=== PATIENT | female | born 1965 | race Caucasian/White ===

== ENCOUNTER 2016-11-18 11:23 | Emergency (ER) | payer MEDICAID, SELFPAY ==
[~2016-11-18 11:23] MED LIST: Iopamidol 370 76% 100 ML VIAL ONE
[2016-11-18 12:53] LABS: Bilirubin Negative (Negative); Blood, Urine Negative (Negative); Glucose, Urine (Dipstick) Negative (Negative); Ketone, Urine Negative (Negative); Nitrite Negative (Negative); Protein, Urine (Dipstick) Negative (Neg-Trace); Urobilinogen 0.2 mg/dL (0.2-1.0)
[2016-11-18 12:55] LABS: Anion Gap 14 mmol/L (10-20); BUN (Urea Nitrogen) 7 mg/dL (7.0-18.7); Calc. Creatinine Clearance 0 mL/min (70-130); Calcium 9.7 mg/dL (7.8-10.44); Carbon Dioxide 27 mmol/L (22-29); Chloride 103 mmol/L (98-107); Estimated GFR-MDRD Greater than 90
[2016-11-18 12:57] LABS: Renal Epithelial 0-3 HPF (0-3); WBC/HPF 0-3 HPF (0-3)
[2016-11-18 12:58] LABS: Bacteria/HPF 1+ HPF (None Seen)
--- NOTE | 2016-11-18 14:56 | ERRECORD ---
[facility] EMERGENCY RECORD HPI NEUROLOGICAL DEFICIT (13:47 JOHE) CHIEF COMPLAINT: Patient presents for evaluation of paresthesias. HISTORIAN: History provided by patient, Patient reports that since Saturday (2 1/2 days), she feels that liquids run out the left side of her mouth, and she has a strange sensation (tightness) of the right side of the mouth/periorbital region. Patient also reports some increased trouble with forming words due to movement of the mouth, and reports left sided occipital headache over the same time period. States several weeks ago she had some tinnitus and vertigo that is now resolved. Triage complaint reports nausea, but patient stated no nausea to me during my exam. Patient denies vision changes, taste changes, neck stiffness, F&C, new numbness/tingling/weakness of the extremities, balance changes, CP, SOB, palpitations, and other symptoms. No trauma or recent illnesses reported. No prior similar episodes. No personal or FH of aneurysms, connective tissue disorders, or PCKD. Pt. refuses medication for headache. LOCATION: Symptoms are localized, most severe to the right side of the face. QUALITY: Patient is alert and oriented to person, place and time, Marcelina coma score is 15, Pain is sharp in nature. SEVERITY: Maximum severity of symptoms severe, Currently symptoms are severe. TIME COURSE: Patient unable to describe onset of symptoms, There has been no change in the patient's symptoms over time, are constant. EXACERBATED BY: Patient's condition exacerbated by nothing. RELIEVED BY: Nothing tried for relief. ROS (13:53 JOHE) CONSTITUTIONAL: Historian denies chills, denies fatigue, denies fever, denies malaise, denies weakness. EYES: Historian denies eye pain, denies eye redness, denies photophobia, denies vision changes. ENT: Historian denies drooling, denies dysphagia, denies hearing changes, denies otalgia, denies otorrhea, denies rhinorrhea, denies sore throat, denies stridor, denies tinnitus, denies voice changes. CARDIOVASCULAR: Historian denies chest pain, denies diaphoresis, denies syncope, denies palpitations. RESPIRATORY: Historian denies cough, denies shortness of breath, denies wheezing. GI: Historian denies abdominal pain, denies diarrhea, denies nausea, denies vomiting. GENITOURINARY FEMALE: Historian denies dysuria, denies frequency, denies hematuria. MUSCULOSKELETAL: Historian denies arthralgias, denies back pain, denies fall, denies myalgias, denies neck pain. SKIN: Historian denies rash, denies skin changes. NEUROLOGIC: Historian denies confusion, denies dizziness, denies focal weakness, denies gait changes, reports headache, denies paralysis, denies sensory changes, denies tremors, denies &a-1R&a+25V*p+0X*[id number]*c202B*c15G*c2P*p-0X&a-25V&a+1R Name: Mariola Summers : 1965 F51 MedRec: [id number] AcctNum: [id number] Prepared: Jacey Nov 18, 2016 14:51 by Interface Page 1 of 4 pMD [facility] EMERGENCY RECORD vertigo. HEMO/LYMPHATIC: Historian denies abnormal blood clotting. PSYCHIATRIC: Historian denies alcohol abuse, denies drug abuse. NOTES: All systems reviewed, negative except as described above. PAST MEDICAL HISTORY (11:31 JPAR) MEDICAL HISTORY: Past medical history includes history of diabetes, Type II, Past medical history includes gynecologic history, uterine fibroid, Past medical history includes history of hyperlipidemia, high cholesterol, Past medical history includes history of hypertension, which has been treated, Patient is compliant, Past medical history includes neurological disease, migraine headaches. FEMALE SURGICAL HISTORY: Surgical history of hysterectomy- total- 2014. PSYCHIATRIC HISTORY: Psychiatric history includes, depression. SOCIAL HISTORY: Patient denies alcohol use, Patient denies drug use, Patient has no smoking history. KNOWN ALLERGIES No Known Allergies (Unconfirmed) No Known Drug Allergies CURRENT MEDICATIONS (11:29 JPAR) Calcium + D: TABLET : Strength - 600 mg calcium (1,500 mg)-200 unit : ORAL Patient Dose: 1 tab(s) Oral 2 times a day. metFORMIN: TABLET : Strength - 500 mg : ORAL Patient Dose: 1 tab(s) Oral 2 times a day. B Complex: CAPSULE : ORAL Patient Dose: 1 cap(s) Oral once a day (in the morning). lovastatin: TABLET : Strength - 20 mg : ORAL Patient Dose: 1 tab(s) Oral once a day (in the evening). lisinopril: TABLET : Strength - 20 mg : ORAL Patient Dose: 1.5 tab(s) Oral once a day (in the morning). VITAL SIGNS VITAL SIGNS: BP: 169/93, Pulse: 86, Resp: 16, Temp: 98.1 (Oral), Pain: 8, O2 sat: 98 on Room Air, Time: 11/18/2016 11:27. (11:27 JPAR) BP: 164/79, Pulse: 68, Resp: 14, Pain: 8, O2 sat: 99, Time: 11/18/2016 13:25. (13:25 JPAR) PHYSICAL EXAM (13:54 JOHE) CONSTITUTIONAL: Vital signs reviewed, Patient appears non toxic, Patient alert and oriented to person, place and time. &a-1R&a+25V*p+0X*[id number]*c202B*c15G*c2P*p-0X&a-25V&a+1R Name: Mariola Summers : 1965 F51 MedRec: [id number] AcctNum: [id number] Prepared: Jacey Nov 18, 2016 14:51 by Interface Page 2 of 4 pMD [facility] EMERGENCY RECORD HEAD: Head exam included findings of head atraumatic, normocephalic, Patient has mild left sided facial drooping, including droop of the forehead muscles. No raccoon eyes or rodriguez sign, NCAT. EYES: Eye exam normal, Eye exam included findings of eyelids normal to inspection, Pupils equally round and reactive to light, Extraocular muscles intact, Conjunctiva normal, Sclera normal, Fundoscopic exam normal, Eye exam included findings of anterior chamber clear, PERRLA, EOMI, no nystagmus. Nondilated funduscopic exam unremarkable. ENT: Ear exam normal, external ear normal, tympanic membranes normal, no foreign body, no drainage, no bleeding, hearing normal, Pharynx exam normal, not injected, no swelling, symmetrical, Uvula exam normal, midline, no edema, Tonsil exam normal, not enlarged, no exudates, Mouth exam normal, mucous membranes moist, no drooling, no lesions, no lacerations, no tongue elevation. NECK: Neck exam normal, Neck exam included findings of normal range of motion, Trachea midline, no carotid bruits, no meningeal signs, no cervical adenopathy, no tenderness, no contusions, no ecchymosis, Neck supple, nontender with full ROM. RESPIRATORY CHEST: Respiratory and chest exam normal, Respiratory exam included findings of no respiratory distress, Breath sounds clear, No wheezing, No rales, No rhonchi, Breath sounds not absent, Breath sounds not diminished, CTAB. CARDIOVASCULAR: Cardiovascular assessment normal, Cardiovascular exam included findings of heart rate regular rate and rhythm, Heart sounds normal, RRR, no R/M/G. + pulses all ext., no bruits, no edema. ABDOMEN FEMALE: Abdominal exam normal, Abdominal exam included findings of abdomen nontender, Bowel sounds normal, no distension, no mass, no pulsatile masses. BACK: Back exam normal, Back exam included findings of normal inspection, range of motion normal. UPPER EXTREMITY: Upper extremity exam normal, Upper extremity exam included findings of inspection normal, Range of motion normal, Motor strength normal, Sensation intact, Radial pulse normal. LOWER EXTREMITY: Lower extremity exam normal, Lower extremity exam included findings of inspection normal, Range of motion normal, Motor strength normal, Sensation intact, Posterior tibial pulse normal, Pedal pulse normal, no calf tenderness, no palpable cords. NEURO: Marcelina coma scale 15, Neuro exam findings include patient oriented to person, place and time, Speech normal, Gait normal, Memory normal, Deep tendon reflexes normal, no focal motor deficits, no focal sensory deficits, no cerebellar deficits, no nystagmus, no clonus, no asterixis, AAO X3, CN II-XII intact bilaterally except mild facial drooping of the left side of the face, including the forehead. Str. 5/5 all ext., sensation intact light touch all ext., reflexes 1-2+/4 equal all ext., normal finger-nose, RUSSELL, heel-metz, and gait in ED. SKIN: Skin exam normal, Skin exam included findings of skin warm, &a-1R&a+25V*p+0X*y4003H*c202B*c15G*c2P*p-0X&a-25V&a+1R Name: Mariola Summers : 1965 F51 MedRec: [id number] AcctNum: [id number] Prepared: Jacey Nov 18, 2016 14:51 by Interface Page 3 of 4 pMD [facility] EMERGENCY RECORD dry, and normal in color, no rash. LYMPHATIC: Lymphatic exam included findings of cervical nodes normal. PSYCHIATRIC: Psychiatric exam normal, Psychiatric exam included findings of patient oriented to person place and time, Normal affect, Judgment normal, Insight normal, Remote memory normal, Recent memory normal, Concentration normal, No suicidal ideations, No homicidal ideations. RADIOLOGYINTERPRETATION HEAD: Head CT negative, with contrast, no bleed, no mass, no acute ischemic stroke, no acute changes. (14:46 JOHE) NECK: CT angiogram of the head/neck negative for acute abnormality, no evidence of dissection or obstruction. (14:47 JOHE) FIRST COOK: Preliminary review of CT scans by, Radiologist. 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 Discussed treatment for benton's palsy, keeping eye moist and taping lid if needed (lid closes well with mild weakness on my exam), close outpatient f/u, and warning signs for immediate return to ED. Patient reports her headache is gone after the CT scan, and promises to f/u or return to ED. Also discussed that Benton's palsy takes some time to recover, and a small percentage of people never regain full function. DATA REVIEWED: Lab data reviewed, Xray data reviewed. PROBLEM LIST No recorded problems DIAGNOSIS (14:27 WOJCIECHE) FINAL: PRIMARY: benton's palsy. PRESCRIPTION (14:27 JOHE) predniSONE oral: TABLET : 20 mg : ORAL : Quantity: 60 Unit: mg Route: ORAL Schedule: once a day (in the morning) Dispense: 21 Unit: tab(s) May substitute. Refills: No Refills . NOTES: 60mg (3 tabs) daily for one week. No Refills. DISPOSITION PATIENT: Disposition Type: Discharge, Disposition: *Discharge Home, Condition: Good. (14:28 LUDA) Patient left the department. (14:47 ROGELIO) Myles: LUDA=MD Lee, Romel MERCADO=JT Lloyd, Hamzah &a-1R&a+25V*p+0X*[id number]*c202B*c15G*c2P*p-0X&a-25V&a+1R Name: Mariola Summers : 1965 F51 MedRec: [id number] AcctNum: [id number] Prepared: Jacey Nov 18, 2016 14:51 by Interface Page 4 of 4 pMD MTDD
--- NOTE | 2016-11-18 15:02 | PICIS ---
[facility] EMERGENCY RECORD TRIAGE (11:28 JPAR) TRIAGE NOTES: R sided facial tingling and facial numbness tingling. (11:28 JPAR) PATIENT: NAME: Mariola Summers, AGE: 51, GENDER: female, : SatApr 27, 1965, TIME OF GREET: Sun Nov 18, 2016 11:25, PREFERRED LANGUAGE: French, ETHNICITY: or , ECODE BILLING MAP: [facility], Zip Code: [address], KG WEIGHT: 74.39, PHONE: , , , PERSON ID: [id number], [facility] (11:28 JPAR) COMPLAINT: RT FACE DROOPING & TINGLING,NAUSEA. (11:28 JPAR) ADMISSION: URGENCY: 3 Urgent, ADMISSION SOURCE: Home, TRANSPORT: CAR, BED: TRIAGE. (11:28 JPAR) ASSESSMENT: Assessment: r sided facial numbness and tingling, 2 days, Symptoms began 2 days, Symptoms began 2 days ago. (11:31 JPAR) IMMUNIZATIONS: Flu vaccine up to date, Tetanus immunization up to date, Pneumococcal vaccine up to date. (11:31 JPAR) SIRS SCORING: Heart Rate 55-109 (0), Temp range 96.8-101.1 (0), respiratory rate 12-24 (0), Mental Status altered: no (0), Infection or Suspected Infection: No. (11:31 JPAR) TRIAGE SCREENING: Patient denies suicidal ideation, Patient denies presence of domestic violence. (11:31 JPAR) PROVIDERS: TRIAGE NURSE: Hamzah Lloyd RN. (11:28 JPAR) PREVIOUS VISIT ALLERGIES: No Known Drug Allergies. (11:28 JPAR) No Known Drug Allergies. (11:31 JPAR) KNOWN ALLERGIES No Known Allergies (Unconfirmed) No Known Drug Allergies CURRENT MEDICATIONS (11:29 JPAR) Calcium + D: TABLET : Strength - 600 mg calcium (1,500 mg)-200 unit : ORAL Patient Dose: 1 tab(s) Oral 2 times a day. metFORMIN: TABLET : Strength - 500 mg : ORAL Patient Dose: 1 tab(s) Oral 2 times a day. B Complex: CAPSULE : ORAL Patient Dose: 1 cap(s) Oral once a day (in the morning). lovastatin: TABLET : Strength - 20 mg : ORAL Patient Dose: 1 tab(s) Oral once a day (in the evening). lisinopril: TABLET : Strength - 20 mg : ORAL Patient Dose: 1.5 tab(s) Oral once a day (in the morning). VITAL SIGNS VITAL SIGNS: BP: 169/93, Pulse: 86, Resp: 16, Temp: 98.1 (Oral), Pain: 8, O2 sat: 98 on Room Air, Time: 11/18/2016 11:27. (11:27 JPAR) &a-1R&a+25V*p+0X*z4608V*c202B*c15G*c2P*p-0X&a-25V&a+1R Name: Mariola Summers : 1965 F51 MedRec: [id number] AcctNum: [id number] Prepared: Jacey Nov 18, 2016 14:57 by Interface Page 1 of 9 pMD [facility] EMERGENCY RECORD BP: 164/79, Pulse: 68, Resp: 14, Pain: 8, O2 sat: 99, Time: 11/18/2016 13:25. (13:25 JPAR) NURSING ASSESSMENT: CVA ASSESSMENT TOOL (11:28 JPAR) CONSTITUTIONAL: Patient arrives ambulatory, Gait steady, History obtained from patient, Patient appears comfortable, Patient cooperative, Patient alert, Oriented to person, place and time, Skin warm, Skin dry, Skin normal in color, Mucous membranes pink, Mucous membranes moist, Patient complains of Facial numbness and tingling 2-3 days. CVA ASSESSMENT: CVA assessment findings include onset of symptoms were, progressive development of deficit over time, Onset of symptoms: Saturday night onset 2 days, Pupils not equally round and reactive to light, Speech normal, Hand grasps equal, Foot press equal, Upper extremity motor strength strong, Lower extremity motor strength strong, Numbness, to the right side of the face, no facial droop, no numbness to upper extremities, no numbness to lower extremities, Marcelina coma scale:, Eye opening: (4) - Spontaneous, Verbal: (5) - Oriented/conversive, Motor: (6) - Obeys commands/Spontaneous, GCS Total: 15, Associated with visual changes, having trouble seeing things at close range. NIHSS: CVA assessment findings: Level of consciousness: alert, keenly responsive (0), Questions: answers both questions correctly (0), Commands: performs both tasks correctly (0), Best gaze: normal (0), Visual: no visual loss (0), Facial palsy: minor paralysis (1), Motor Left Arm: no drift, arm stays 90/45 degrees for full 10 seconds (0), Motor Right Arm: no drift, arm stays 90/45 degrees for full 10 seconds (0), Motor left leg: no drift, leg stays at 30 degrees for full five seconds (0), Motor right leg: no drift, leg stays at 30 degrees for full five seconds (0), Limb ataxia absent (0), Sensory: normal, no sensory loss (0), Best language: no aphasia; normal (0), Dysarthria: normal (0), Extinction and Inattention: normal (0), Total score 1. SWALLOWING EVALUATION: Dysphagia Assessment findings: does not need frequent suctioning, can manage own secretions, no dense facial weakness, no decreased level of alertness, does not require oxygen by mask, able to maintain oxygen saturation at or above 90%, no history of aspiration pneumonia, no prior martin with residual effects, Patient clear for swallowing evaluation; no positive responses, Following administration of 3 ounces of water by a cup, patient exhibited no signs or symptoms of aspiration, passed evaluation. SAFETY: Side rails up, Cart/Stretcher in lowest position, Call light within reach, Hospital ID band on. NURSING PROCEDURE: IV PATIENT IDENITIFIER: Patient actively involved in identification process, Patient's identity verified by patient stating name, Patient's identity verified by patient stating date, Patient's &a-1R&a+25V*p+0X*b0892A*c202B*c15G*c2P*p-0X&a-25V&a+1R Name: Mariola Summers : 1965 F51 MedRec: [id number] AcctNum: [id number] Prepared: Jacey Nov 18, 2016 14:57 by Interface Page 2 of 9 pMD [facility] EMERGENCY RECORD identity verified by hospital ID bracelet, Patient's identity verified by family member. (12:20 JPAR) IV SITE 1: IV therapy indicated for hydration, IV therapy indicated for medication administration, IV established, to the right antecubital, using a 20 gauge catheter, in one attempt, IV site prepped with clorohexaphine, Saline lock established, Flushed with normal saline (mls): 10, Labs drawn at time of placement, labeled in the presence of the patient and sent to lab. (12:20 JPAR) IV SITE 2: IV therapy indicated for hydration, IV therapy indicated for medication administration, IV established, to the left antecubital, using a 20 gauge catheter, in one attempt, IV site prepped with chlorhexadine, Saline lock established, Flushed with normal saline (mls): 10. (12:20 JPAR) FOLLOW-UP SITE 1: After procedure, 2x2 dressing applied, After procedure, no drainage at IV site, After procedure, no swelling at IV site, After procedure, no redness at IV site, IV discontinued, due to pain at site, catheter intact. (12:20 JPAR) FOLLOW-UP SITE 2: After procedure, 2x2 dressing applied, After procedure, no drainage at IV site, After procedure, no swelling at IV site, After procedure, no redness at IV site, IV discontinued, due to patient being discharged, catheter intact. (14:40 JPAR) SAFETY: Side rails up, Cart/Stretcher in lowest position, Family at bedside, Call light within reach, Hospital ID band on. (12:20 JPAR) NURSING PROCEDURE: URINE COLLECTION (12:15 JPAR) PATIENT IDENTIFIER: Patient actively involved in identification process, Patient's identity verified by patient stating name, Patient's identity verified by patient stating date, Patient's identity verified by hospital ID bracelet, Patient's identity verified by family member. URINE COLLECTION FEMALE: Urine collection indicated to monitor output, Urine collected by void, output amount (mL) 40, urine yellow in color, and cloudy, Specimen labeled in the presence of the patient and sent to lab, Specimen obtained for culture labeled in the presence of the patient and sent to lab. SAFETY: Side rails up, Cart/Stretcher in lowest position, Family at bedside, Call light within reach, Hospital ID band on. ORDER DETAILS Order Name: Basic Metabolic Panel, Status: Active, Time: 12:00 11/18/2016, User: LUDA, - Ordered for: MD Howard John, - Entered by: MD Howard John - Sun Nov 18, 2016 12:00, - Quantity: 1, Order Name: CTA Angio Head W WO Con, Status: Active, Time: 12:00 11/18/2016, User: LUDA, - Ordered for: MD Howard John, - Entered by: MD Howard John - Jacey Nov 18, 2016 12:00, &a-1R&a+25V*p+0X*s3206M*c202B*c15G*c2P*p-0X&a-25V&a+1R Name: Mariola Summers : 1965 F51 MedRec: [id number] AcctNum: [id number] Prepared: Jacey Nov 18, 2016 14:57 by Interface Page 3 of 9 D [facility] EMERGENCY RECORD - Quantity: 1, Order Name: CTA Angio Neck W WO Con, Status: Active, Time: 12:00 11/18/2016, User: LUDA, - Ordered for: MD Howard John, - Entered by: MD Howard John - Jacey Nov 18, 2016 12:00, - Quantity: 1, Order Name: SALINE LOCK, Status: Done, Time: 12:31 11/18/2016, User: ROGELIO, - Ordered for: MD Howard John, - Entered by: MD Howard John - Sun Nov 18, 2016 12:01, - Quantity: 1, Order Name: Urinalysis with Microscopic, Status: Active, Time: 12:35 11/18/2016, User: LUDA, - Ordered for: MD Howard John, - Entered by: MD Howard John - Sun Nov 18, 2016 12:35, - Quantity: 1. HPI NEUROLOGICAL DEFICIT (13:47 LUDA) CHIEF COMPLAINT: Patient presents for evaluation of paresthesias. HISTORIAN: History provided by patient, Patient reports that since Saturday (2 1/2 days), she feels that liquids run out the left side of her mouth, and she has a strange sensation (tightness) of the right side of the mouth/periorbital region. Patient also reports some increased trouble with forming words due to movement of the mouth, and reports left sided occipital headache over the same time period. States several weeks ago she had some tinnitus and vertigo that is now resolved. Triage complaint reports nausea, but patient stated no nausea to me during my exam. Patient denies vision changes, taste changes, neck stiffness, F&C, new numbness/tingling/weakness of the extremities, balance changes, CP, SOB, palpitations, and other symptoms. No trauma or recent illnesses reported. No prior similar episodes. No personal or FH of aneurysms, connective tissue disorders, or PCKD. Pt. refuses medication for headache. LOCATION: Symptoms are localized, most severe to the right side of the face. QUALITY: Patient is alert and oriented to person, place and time, Kemah coma score is 15, Pain is sharp in nature. SEVERITY: Maximum severity of symptoms severe, Currently symptoms are severe. TIME COURSE: Patient unable to describe onset of symptoms, There has been no change in the patient's symptoms over time, are constant. EXACERBATED BY: Patient's condition exacerbated by nothing. RELIEVED BY: Nothing tried for relief. ROS (13:53 LUDA) CONSTITUTIONAL: Historian denies chills, denies fatigue, denies fever, denies malaise, denies weakness. EYES: Historian denies eye pain, denies eye redness, denies photophobia, denies vision changes. &a-1R&a+25V*p+0X*s6499G*c202B*c15G*c2P*p-0X&a-25V&a+1R Name: Mariola Summers : 1965 F51 MedRec: [id number] AcctNum: [id number] Prepared: Jacey Nov 18, 2016 14:57 by Interface Page 4 of 9 pMD [facility] EMERGENCY RECORD ENT: Historian denies drooling, denies dysphagia, denies hearing changes, denies otalgia, denies otorrhea, denies rhinorrhea, denies sore throat, denies stridor, denies tinnitus, denies voice changes. CARDIOVASCULAR: Historian denies chest pain, denies diaphoresis, denies syncope, denies palpitations. RESPIRATORY: Historian denies cough, denies shortness of breath, denies wheezing. GI: Historian denies abdominal pain, denies diarrhea, denies nausea, denies vomiting. GENITOURINARY FEMALE: Historian denies dysuria, denies frequency, denies hematuria. MUSCULOSKELETAL: Historian denies arthralgias, denies back pain, denies fall, denies myalgias, denies neck pain. SKIN: Historian denies rash, denies skin changes. NEUROLOGIC: Historian denies confusion, denies dizziness, denies focal weakness, denies gait changes, reports headache, denies paralysis, denies sensory changes, denies tremors, denies vertigo. HEMO/LYMPHATIC: Historian denies abnormal blood clotting. PSYCHIATRIC: Historian denies alcohol abuse, denies drug abuse. NOTES: All systems reviewed, negative except as described above. PAST MEDICAL HISTORY (11:31 JPAR) MEDICAL HISTORY: Past medical history includes history of diabetes, Type II, Past medical history includes gynecologic history, uterine fibroid, Past medical history includes history of hyperlipidemia, high cholesterol, Past medical history includes history of hypertension, which has been treated, Patient is compliant, Past medical history includes neurological disease, migraine headaches. FEMALE SURGICAL HISTORY: Surgical history of hysterectomy- total- 2014. PSYCHIATRIC HISTORY: Psychiatric history includes, depression. SOCIAL HISTORY: Patient denies alcohol use, Patient denies drug use, Patient has no smoking history. PHYSICAL EXAM (13:54 JOHE) CONSTITUTIONAL: Vital signs reviewed, Patient appears non toxic, Patient alert and oriented to person, place and time. HEAD: Head exam included findings of head atraumatic, normocephalic, Patient has mild left sided facial drooping, including droop of the forehead muscles. No raccoon eyes or rodriguez sign, NCAT. EYES: Eye exam normal, Eye exam included findings of eyelids normal to inspection, Pupils equally round and reactive to light, Extraocular muscles intact, Conjunctiva normal, Sclera normal, Fundoscopic exam normal, Eye exam included findings of anterior chamber clear, PERRLA, EOMI, no nystagmus. Nondilated funduscopic exam unremarkable. &a-1R&a+25V*p+0X*m2991P*c202B*c15G*c2P*p-0X&a-25V&a+1R Name: Mariola Summers : 1965 F51 MedRec: [id number] AcctNum: [id number] Prepared: Jacey Nov 18, 2016 14:57 by Interface Page 5 of 9 [facility] EMERGENCY RECORD ENT: Ear exam normal, external ear normal, tympanic membranes normal, no foreign body, no drainage, no bleeding, hearing normal, Pharynx exam normal, not injected, no swelling, symmetrical, Uvula exam normal, midline, no edema, Tonsil exam normal, not enlarged, no exudates, Mouth exam normal, mucous membranes moist, no drooling, no lesions, no lacerations, no tongue elevation. NECK: Neck exam normal, Neck exam included findings of normal range of motion, Trachea midline, no carotid bruits, no meningeal signs, no cervical adenopathy, no tenderness, no contusions, no ecchymosis, Neck supple, nontender with full ROM. RESPIRATORY CHEST: Respiratory and chest exam normal, Respiratory exam included findings of no respiratory distress, Breath sounds clear, No wheezing, No rales, No rhonchi, Breath sounds not absent, Breath sounds not diminished, CTAB. CARDIOVASCULAR: Cardiovascular assessment normal, Cardiovascular exam included findings of heart rate regular rate and rhythm, Heart sounds normal, RRR, no R/M/G. + pulses all ext., no bruits, no edema. ABDOMEN FEMALE: Abdominal exam normal, Abdominal exam included findings of abdomen nontender, Bowel sounds normal, no distension, no mass, no pulsatile masses. BACK: Back exam normal, Back exam included findings of normal inspection, range of motion normal. UPPER EXTREMITY: Upper extremity exam normal, Upper extremity exam included findings of inspection normal, Range of motion normal, Motor strength normal, Sensation intact, Radial pulse normal. LOWER EXTREMITY: Lower extremity exam normal, Lower extremity exam included findings of inspection normal, Range of motion normal, Motor strength normal, Sensation intact, Posterior tibial pulse normal, Pedal pulse normal, no calf tenderness, no palpable cords. NEURO: Kemah coma scale 15, Neuro exam findings include patient oriented to person, place and time, Speech normal, Gait normal, Memory normal, Deep tendon reflexes normal, no focal motor deficits, no focal sensory deficits, no cerebellar deficits, no nystagmus, no clonus, no asterixis, AAO X3, CN II-XII intact bilaterally except mild facial drooping of the left side of the face, including the forehead. Str. 5/5 all ext., sensation intact light touch all ext., reflexes 1-2+/4 equal all ext., normal finger-nose, RUSSELL, heel-metz, and gait in ED. SKIN: Skin exam normal, Skin exam included findings of skin warm, dry, and normal in color, no rash. LYMPHATIC: Lymphatic exam included findings of cervical nodes normal. PSYCHIATRIC: Psychiatric exam normal, Psychiatric exam included findings of patient oriented to person place and time, Normal affect, Judgment normal, Insight normal, Remote memory normal, Recent memory normal, Concentration normal, No suicidal ideations, No homicidal ideations. LAB INTERPRETATION (14:50 JOHE) &a-1R&a+25V*p+0X*v7072T*c202B*c15G*c2P*p-0X&a-25V&a+1R Name: Mariola Summers : 1965 F51 MedRec: [id number] AcctNum: [id number] Prepared: Jacey Nov 18, 2016 14:57 by Interface Page 6 of 9 D [facility] EMERGENCY RECORD INTERPRETATION: I reviewed the lab results, No clinically significant lab abnormalities. EVENTS TRANSFER: Triage to Emergency Triage. (Jacey Nov 18, 2016 11:28 JPAR) Emergency Triage to Emergency Room -03. (11:29 JPAR) Removed from Emergency Emergency Room -03. (14:47 JPAR) RADIOLOGYINTERPRETATION HEAD: Head CT negative, with contrast, no bleed, no mass, no acute ischemic stroke, no acute changes. (14:46 JOHE) NECK: CT angiogram of the head/neck negative for acute abnormality, no evidence of dissection or obstruction. (14:47 JOHE) DIMENSION [employer]Y SUPERVISOR: Preliminary review of CT scans by, Radiologist. 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 Discussed treatment for benton's palsy, keeping eye moist and taping lid if needed (lid closes well with mild weakness on my exam), close outpatient f/u, and warning signs for immediate return to ED. Patient reports her headache is gone after the CT scan, and promises to f/u or return to ED. Also discussed that Benton's palsy takes some time to recover, and a small percentage of people never regain full function. DATA REVIEWED: Lab data reviewed, Xray data reviewed. PROBLEM LIST No recorded problems DIAGNOSIS (14:27 JOHE) FINAL: PRIMARY: benton's palsy. DISPOSITION PATIENT: Disposition Type: Discharge, Disposition: *Discharge Home, Condition: Good. (14:28 JOHE) Patient left the department. (14:47 JPAR) INSTRUCTION (14:28 JOHE) DISCHARGE: BENTON'S PALSY. FOLLOWUP: [facility], Clinic, [address] , , MD Ann, [facility], Neurology, [address] [place] [address], [address], [facility] [address], , Follow up with Primary Care Physician in 2-3 days, Follow up with Specialist as soon as possible. SPECIAL: Follow-up with your PCP. &a-1R&a+25V*p+0X*i9262Z*c202B*c15G*c2P*p-0X&a-25V&a+1R Name: Mariola Summers : 1965 F51 MedRec: [id number] AcctNum: [id number] Prepared: Jacey Nov 18, 2016 14:57 by Interface Page 7 of 9 pMD [facility] EMERGENCY RECORD PRESCRIPTION (14:27 JOHE) predniSONE oral: TABLET : 20 mg : ORAL : Quantity: 60 Unit: mg Route: ORAL Schedule: once a day (in the morning) Dispense: 21 Unit: tab(s) May substitute. Refills: No Refills . NOTES: 60mg (3 tabs) daily for one week. No Refills. IMAGING *SUPPLY CHARGE SHEET: Image captured from scanner. (14:42 JPAR) *DISCHARGE INSTRUCTIONS RECEIPT: Image captured from scanner. (14:43 JPAR) ADMIN (14:51 JOHE) DIGITAL SIGNATURE: MD Howard John. RESULTS LABORATORY: Urinalysis with Microscopic Collection DT: Jacey Nov 18, 2016 12:38, Color Yellow , Range (Yellow), Clarity Clear , Range (Clear), Specific Roberts, Urine 1.015 , Range (1.005-1.030), pH, Urine 7.5 , Range (5.0-9.0), Leukocyte Negative , Range (Negative), Nitrite Negative , Range (Negative), Protein, Urine (Dipstick) Negative mg/dL, Range (Neg-Trace), Glucose, Urine (Dipstick) Negative mg/dL, Range (Negative), Ketone, Urine Negative mg/dL, Range (Negative), Urobilinogen 0.2 mg/dL, Range (0.2-1.0), Bilirubin Negative , Range (Negative), Blood, Urine Negative , Range (Negative). (12:59 JPAR) Basic Metabolic Panel Collection DT: [place] Nov 18, 2016 12:26, Sodium 140 mmol/L, Range (136-145), Potassium 3.6 mmol/L, Range (3.5-5.1), Chloride 103 mmol/L, Range (98-107), Carbon Dioxide 27 mmol/L, Range (22-29), Anion Gap 14 mmol/L, Range (10-20), BUN (Urea Nitrogen) 7 mg/dL, Range (7.0-18.7), Creatinine 0.64 mg/dL, Range (0.6-1.1), Estimated GFR-MDRD Greater than 90 , Reference Range for Estimated GFR: Greater than 90, mL/min/1.73 m2 NOTE: The MDRD equation has not been validated for use, with the elderly (over 70 years of age), women, patients with, serious comorbid condition or persons with extremes of body size, muscle, mass, or nutritional status. , *Glucose 155 - H mg/dL, Range (70-105), Calcium 9.7 mg/dL, Range (7.8-10.44). (12:59 JPAR) &a-1R&a+25V*p+0X*k1859A*c202B*c15G*c2P*p-0X&a-25V&a+1R Name: Mariola Summers : 1965 F51 MedRec: [id number] AcctNum: [id number] Prepared: Jacey Nov 18, 2016 14:57 by Interface Page 8 of 9 pMD [facility] EMERGENCY RECORD Urinalysis with Microscopic Collection DT: Jacey Nov 18, 2016 12:38, Color Yellow , Range (Yellow), Clarity Clear , Range (Clear), Specific Roberts, Urine 1.015 , Range (1.005-1.030), pH, Urine 7.5 , Range (5.0-9.0), Leukocyte Negative , Range (Negative), Nitrite Negative , Range (Negative), Protein, Urine (Dipstick) Negative mg/dL, Range (Neg-Trace), Glucose, Urine (Dipstick) Negative mg/dL, Range (Negative), Ketone, Urine Negative mg/dL, Range (Negative), Urobilinogen 0.2 mg/dL, Range (0.2-1.0), Bilirubin Negative , Range (Negative), Blood, Urine Negative , Range (Negative), WBC/HPF 0-3 HPF, Range (0-3), *Squamous Epithelial 4-6 - H HPF, Range (0-3), Renal Epithelial 0-3 HPF, Range (0-3), *Bacteria/HPF 1+ - H HPF, Range (None Seen). (13:11 LUDA) Myles: LUDA=MD Lee, Romel MERCADO=JT Lloyd, Hamzah &a-1R&a+25V*p+0X*p3449N*c202B*c15G*c2P*p-0X&a-25V&a+1R Name: Mariola Summers : 1965 F51 MedRec: [id number] AcctNum: [id number] Prepared: Jacey Nov 18, 2016 14:57 by Interface Page 9 of 9 pMD [facility]
--- NOTE | 2016-11-18 15:30 | CT ---
CT ANGIOGRAM OF THE HEAD AND NECK: History: Right facial droop. 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 Possible carotid dissection. Symptoms x 24 h ours. Headache. Comparison: None. Technique: A CT angiogram of the head and neck are performed in the axial plane. Sagittal and carolyn nal 3D MIP images are submitted for interpretation. FINDINGS: Evaluation for subarachnoid hemorrhage is limited as a noncontrast CT is not performed. No parenchymal hemorrhage. No extraaxial hematoma. No midline shift. Basilar cisterns are patent. Brain volume, age appropriate. Cortical cannon-white matter differentiation is preserved. Ventricles and sulci are patent and symmetric. Adequate aeration of the sinuses and mastoid air sheela ls. Bilateral ocular lens appropriate located. Both globes are intact. Retrobulbar fat is preserved. Aerodigestive tract is patent. Midline fatty roof of the tongue is noted on the sagittal reformatte d images. Limited evaluation of the oral cavity due to dental amalgam artifact. Epiglottis has a n ormal caliber. The epiglottic fat is preserved. There is no prevertebral soft tissue swelling. Symmetric attenuation of the parotid gland, submandibular glands. There is hypodensity in the left hepatic lobe, measuring 0.6 cm. Non-emergent thyroid ultrasound. Symmetric attenuation of the sternocleidomastoid muscles. Nonspecific, nonenlarged bilateral left I I lymph nodes. Cervical spine vertebral body height is maintained. There is no fracture. No malalignment. Centra l spinal canal and neural foramina are patent. Limited evaluation by technique. Upper mediastinum and lung apices are unremarkable. Chronic changes in the lung apices are suspecte d. CT ANGIOGRAM: The aortic arch appears to be of appropriate enhancement and luminal diameter. CT ANGIOGRAM NECK: The right innominate artery origin, common carotid artery, carotid bifurcation and internal carotid artery have appropriate enhancement and luminal diameter. No evidence of significant stenosis. No evidence of occlusion or dissection. Left carotid: Left carotid artery origins is appropriate enhancement and luminal diameter. The lef t common carotid artery, carotid bifurcation and internal carotid artery has appropriate enhancement and luminal diameter. No evidence of occlusion or dissection. Both vertebral artery origins are unremarkable. Cervical course of both vertebral arteries is unrem arkable. Both cervical vertebral arteries are patent. Vertebral arteries are co-dominant. Bilateral subclavian arteries are unremarkable. CT ANGIOGRAM OF THE HEAD: Limited evaluation by acquisition and technique. Neither petrous segment could be adequately access ed. There is symmetric enhancement in the luminal diameter of the cavernous carotid arteries bilate rally. There is overall symmetric appearance of the A1 and M1 segments. Evaluation of the proximal MCA branches and A2 vertebral arteries is limited by technique. With regard to the posterior circu lation, intracranial vertebral arteries are grossly unremarkable. Neither PICA artery origin can be adequately assessed. Grossly the basilar artery is unremarkable. Evaluation of both P1 segments i s limited. No gross abnormality. IMPRESSION: 1. Limited evaluation of the [place] due to technique. No evidence of a vascular occlusio n. 2. Appropriate enhancement in luminal diameter of the cervical carotid and vertebral arteries. No evidence of dissection. 3. Hypodensity in the left thyroid lobe. Non-emergent thyroid ultrasound. POS: MIRIAM
== END 2016-11-18 14:38 | disposition home or self-care (01) ==
LOC: NAV ERS 11:23
DX: G51.0 Bell's palsy (principal); E11.9 Type 2 diabetes mellitus without complications; E78.5 Hyperlipidemia, unspecified; I10 Essential (primary) hypertension; G43.909 Migraine, unspecified, not intractable, without status migrainosus
CPT/HCPCS: 70496; 70498; 80048; 81001

== ENCOUNTER 2023-07-23 10:59 | Outpatient (CLI) | payer OTHER | END 2023-07-23 11:00 | disposition home or self-care (01) | LOC: NAV RAD 10:59 | PROVIDERS: ATTEND Nurse Practitioner Family | DX: R20.0 Anesthesia of skin (principal) | CPT/HCPCS: 72040 ==